=== PATIENT | female | born 1960 | race Caucasian/White ===

== ENCOUNTER 2016-07-25 19:15 | Emergency (ER) | payer BC ==
[~2016-07-25 19:15] MED LIST: ANTIVERT25 MG PO; ATIVAN0.5 M1 PO; ATIVAN0.5 MG PO; COMPAZINE10 M PO; EFFEXOR XR75 M1 PO; EFFEXOR75 MG; ESTRADIOL2 MG; FLONASE16 G1; LEVOXYL100 MCG; ORACEA40 MG; PLAQUENIL200 MG PO; SYNTHROID100 MCG PO; ZOFRAN4 M1 PO
[2016-07-25] MEDS ORDERED: LEVOTHYROXINE88 MC2 PO (19:55)
[2016-07-25] MEDS ORDERED: NORCO 5-325 TA1 EACH PO ×2 (21:09→21:10)
== END 2016-07-25 21:31 ==
LOC: EDMED 19:15
DX: M25.561 Pain in right knee (principal); E03.9 Hypothyroidism, unspecified; Z79.890 Hormone replacement therapy